=== PATIENT | female | born 1970 | race Caucasian/White ===

== ENCOUNTER 2017-01-04 18:17 | Emergency (ER) | payer OTHER ==
[~2017-01-04] VITALS: Ht 152.4 cm; Wt 76.0 kg
[~2017-01-04 18:17] MED LIST: DOCU-131 PO; GLIP10TA13 PO; IBUP200T48 PO; LISI-167 PO; METF10002 PO; OMEP-110 PO; OXYC-307 PO
[2017-01-04 18:27] VITALS: BP 155/88
== END 2017-01-04 19:09 ==
LOC: ED 18:54
DX: Z02.9 Encounter for administrative examinations, unspecified (principal)

== ENCOUNTER 2017-05-23 09:31 | Emergency (ER) | payer SELFPAY ==
[~2017-05-23] VITALS: Ht 149.9 cm; Wt 57.7 kg
[~2017-05-23 09:31] MED LIST changes: -IBUP200T48 PO; +IBUP200T49 PO
[2017-05-23 10:19] LABS: MICROSCOPIC NOT IND
[2017-05-23 10:26] LABS: CULTURE INDICATED? NO
[2017-05-23 10:31] LABS: BASOPHILS # (AUTO) 0.03 x10^3/uL (0-0.1); BASOPHILS % (AUTO) 0 % (0-1); EOSINOPHILS # (AUTO) 0.08 x10^3/uL (0-0.4); EOSINOPHILS % (AUTO) 1 % (1-7); LYMPHOCYTES # (AUTO) 1.78 x10^3/uL (1-3.4); LYMPHOCYTES % (AUTO) 23 % (22-44); MD NO; MEAN CORPUSCULAR HEMOGLOBIN 27.4 pg (27.0-34.8); MEAN CORPUSCULAR HGB CONC 32.4 g/dL (32.4-35.8); MEAN CORPUSCULAR VOLUME 84.8 fL (80-100); MEAN PLATELET VOLUME 7.2 fL (7.4-10.4); MONOCYTES # (AUTO) 0.34 x10^3/uL (0.2-0.8); MONOCYTES % (AUTO) 5 % (2-9); NEUTROPHILS # (AUTO) 5.43 x10^3/uL (1.8-6.8); NEUTROPHILS % (AUTO) 71 % (42-75); PLATELET COUNT 396 x10^3/uL (130-400); RED BLOOD COUNT 4.44 x10^6/uL (3.82-5.3); RED CELL DISTRIBUTION WIDTH 14.6 % (9.6-15.2)
[2017-05-23 10:42] LABS: ALBUMIN 3.3 g/dL (3.4-5.0); ANION GAP 7 mmol/L (5-15); CALCIUM 8.2 mg/dL (8.5-10.1); CHLORIDE 107 mmol/L (98-107)
[2017-05-23] MEDS ORDERED: SODIUM CHLORIDE FLUSH 10ML SYR IVF ONE (11:30)
[2017-05-23] MEDS ORDERED: OMNIPAQUE 350 MG/ML, 100ML BOTTLE ONE (11:31)
[2017-05-23 11:58] VITALS: BP 179/98
== END 2017-05-23 12:19 | disposition home or self-care (01) ==
LOC: ED 10:11
DX: R10.2 Pelvic and perineal pain (principal); R30.0 Dysuria; E11.65 Type 2 diabetes mellitus with hyperglycemia; I10 Essential (primary) hypertension; Z79.84 Long term (current) use of oral hypoglycemic drugs; Z90.710 Acquired absence of both cervix and uterus
CPT/HCPCS: 36415; 74177; 80048; 81003; 82040; 85025; 99285; Q9967

== ENCOUNTER 2020-07-22 05:15 | Emergency (ER) | payer OTHER ==
[~2020-07-22] VITALS: Ht 142.2 cm; Wt 55.1 kg
[~2020-07-22 05:15] MED LIST changes: -OXYC-307 PO; +OXYC-380 PO
[2020-07-22 06:25] LABS: BASOPHILS % (AUTO) 1 % (0-1); EOSINOPHILS % (AUTO) 1 % (1-7); LYMPHOCYTES % (AUTO) 29 % (22-44); MEAN CORPUSCULAR HEMOGLOBIN 29.5 pg (27.0-34.8); MEAN CORPUSCULAR HGB CONC 33.2 g/dL (32.4-35.8); MEAN PLATELET VOLUME 7.1 fL (7.4-10.4); MONOCYTES % (AUTO) 8 % (2-9); NEUTROPHILS % (AUTO) 62 % (42-75); PLATELET COUNT 376 x10^3/uL (130-400); RED BLOOD COUNT 4.82 x10^6/uL (3.82-5.3); RED CELL DISTRIBUTION WIDTH 13.5 % (9.6-15.2)
[2020-07-22 06:27] LABS: ALBUMIN 3.7 g/dL (3.4-5.0); ANION GAP 8 mmol/L (5-15); CALCIUM 9.4 mg/dL (8.5-10.1); CHLORIDE 107 mmol/L (98-107); CREATININE 0.47 mg/dL (0.55-1.02)
[2020-07-22 06:30] LABS: TROPONIN I < 0.015 ng/mL (0.000-0.045)
--- NOTE | 2020-07-22 06:44 | NUR ---
Report to Jim WRIGHT
--- NOTE | 2020-07-22 06:45 | NUR ---
REPORT FROM ADRIANA SAMUEL. PT LAYING ON CUONG CALZADA/ISABELLE. DAUGHTER AT . COMFORT MEASURES PROVIDED. CALL LIGHT WITHIN REACH
[2020-07-22 06:48] VITALS: BP 143/76
--- NOTE | 2020-07-22 07:24 | NUR ---
Patient given discharge instructions and they have confirmed that they understand the instructions. Patient ambulatory with steady gait.
== END 2020-07-22 07:31 | disposition home or self-care (01) ==
LOC: ED 07:29
DX: R07.89 Other chest pain (principal); I10 Essential (primary) hypertension; E11.9 Type 2 diabetes mellitus without complications
CPT/HCPCS: 36415; 71045; 80048; 82040; 83880; 84484; 85025; 85379; 93005; 99285